=== PATIENT | male | born 1985 | race Caucasian/White ===

== ENCOUNTER 2018-10-24 17:06 | Emergency (ER) | payer OTHER ==
[~2018-10-24] VITALS: Ht 182.9 cm; Wt 136.1 kg
[~2018-10-24 17:06] MED LIST: ALBUTEROL INHAL17 GM; ALBUTEROL2.5 MG/0.1 IH; ALBUTEROL2.5 MG/31 INH; AMOXICILLIN 50500 M1 PO; AMOXICILLIN875 MG PO; AUGMENTIN 500-1 EACH PO; AUGMENTIN 875875 MG PO; CIPRO500 MG PO; CORTISPORIN OTI10 M2 OT; EXCEDRIN CAPLE1 EACH; FLAGYL500 MG PO; FLEXERIL PO; IBUPROFEN; IBUPROFEN 800800 M1 PO; MEDROL DOSPAK21 TA1 PO; NAPROSYN500 MG PO; NORCO 5-325 TA1 EACH PO; NYSTATIN-TRIAMC15 G1 TP; PREDNISONE 10 M10 M1 PO; PREDNISONE 10 M10 MG PO; PREDNISONE 20 M20 M1 PO; PROVENTIL HFA6.7 G1; PROVENTIL HFA6.7 G1 INH; TESSALON200 MG PO; TRAMADOL 50 MG50 MG PO; VENTOLIN17 GM INH; XOPENEX1.25 MG/3 IH; ZPAK PO; [UNRECOGNIZED DRUG - OTHER]
[2018-10-24] MEDS ORDERED: NORCO 5-325 TA1 EAC1 PO (19:01)
[2018-10-24] MEDS ORDERED: KEFLEX500 M1 PO (19:01)
[2018-10-24] MEDS ORDERED: BACTRIM DS TAB1 EACH PO (19:01)
[2018-10-24 19:14] VITALS: BP 168/98
== END 2018-10-24 19:15 | disposition home or self-care (01) ==
LOC: M.ERS 17:06
DX: S70.362A Insect bite (nonvenomous), left thigh, initial encounter (principal); S70.361A Insect bite (nonvenomous), right thigh, initial encounter; J45.909 Unspecified asthma, uncomplicated; Z88.1 Allergy status to other antibiotic agents; W57.XXXA Bitten or stung by nonvenomous insect and other nonvenomous arthropods, initial encounter; Y93.89 Activity, other specified; Y92.89 Other specified places as the place of occurrence of the external cause; Y99.8 Other external cause status

== ENCOUNTER 2018-11-02 21:22 | Emergency (ER) | payer OTHER ==
[~2018-11-02] VITALS: Ht 180.3 cm; Wt 136.1 kg
[~2018-11-02 21:22] MED LIST changes: +BACTRIM DS TAB1 EACH PO; +KEFLEX500 M1 PO; +NORCO 5-325 TA1 EAC1 PO
[2018-11-02 21:56] LABS: ABSOLUTE EOSINOPHILS 0.2 thou/uL (0.0-0.7); ABSOLUTE LYMPHOCYTES 1.2 thou/uL (0.8-5.3); ABSOLUTE MONOCYTES 0.9 thou/uL (0.0-1.2); ABSOLUTE NEUTROPHILS 6.9 thou/uL (1.6-8.1); BASOPHILS 0.5 %; EOSINOPHILS 1.7 %; HEMATOCRIT 43.4 % (42.0-52.0); HEMOGLOBIN 14.6 gm/dL (14.0-18.0); LYMPHOCYTES 13.6 %; MCH 29.7 pg (26.0-34.0); MCHC 33.6 g/dL (28.0-37.0); MCV 88.5 fL (80.0-100.0); MONOCYTES 9.4 %; MPV 9.1 fl. (7.2-11.1); NUCLEATED RBCS 0 /100WBC; PLATELET COUNT* 210 thou/uL (150-400); POLYS 74.8 %; RBC 4.91 mil/uL (4.50-6.00); RDW-CV 13.6 % (10.5-14.5); WBC 9.2 thou/uL (4.0-11.0)
[2018-11-02 22:03] LABS: ANION GAP 9 mmol/L (7-16); APTT 28.7 Seconds (25.0-31.3); BUN 9 mg/dL (7-18); CALCIUM 7.9 mg/dL (8.5-10.1); CHLORIDE 101 mmol/L (98-107); CO2 26 mmol/L (21-32); CREATININE 1.1 mg/dL (0.6-1.3); GLUCOSE 142 mg/dL (70-99); INR 1.1; POTASSIUM 3.2 mmol/L (3.5-5.1); SODIUM 136 mmol/L (136-145)
[2018-11-02 22:13] LABS: ALBUMIN 3.2 g/dL (3.4-5.0); ALKALINE PHOSPHATASE 83 U/L (46-116); NT-PRO BRAIN NAT PEPTIDE 53 pg/mL (<300); SGOT 25 U/L (15-37); SGPT 39 U/L (30-65); TOTAL BILIRUBIN 0.6 mg/dL (<0.1-1.0); TROPONIN-I LEVEL <0.06 ng/mL (<0.06)
[2018-11-02] MEDS ORDERED: NORCO 5-325 TA1 EAC1 PO (22:31)
[2018-11-02] MEDS ORDERED: FLEXERIL PO (22:31)
[2018-11-02 22:47] VITALS: BP 136/81
--- NOTE | 2018-11-04 16:53 | EKG ---
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1985 Requested By: [place] Order Number: [id number] MD: Horace Stearns Measurements Intervals [place] Rate: 72 P: 31 UT: 143 QRS: -15 QRSD: 102 T: 14 QT: 407 QTc: 446 Interpretive Statements Sinus rhythm Borderline left axis deviation Borderline T wave abnormalities Baseline wander in lead(s) V1,V2 Compared to ECG 04/29/2006 02:21:29 T-wave abnormality now present Sinus tachycardia no longer present Electronically Signed On 11-04-2018 16:53:18 CDT by Horace Stearns [email or web address] <ELECTRONICALLY SIGNED> By: Horace Stearns MD, [facility] 11/04/18 1653 50 50 Horace Stearns MD, [facility] /EPI
== END 2018-11-02 22:49 | disposition home or self-care (01) ==
LOC: M.ERS 21:22
PROVIDERS: Family Medicine
DX: M43.6 Torticollis (principal); B34.9 Viral infection, unspecified; J45.909 Unspecified asthma, uncomplicated; Z98.890 Other specified postprocedural states; Z88.1 Allergy status to other antibiotic agents